=== PATIENT | male | born 1945 | race Caucasian/White ===

== ENCOUNTER → 2016-09-04 | Outpatient (CLI) | payer MEDICARE, OTHER | END | disposition home or self-care (01) | LOC: CFH 15:47 | PROVIDERS: ATTEND Family Medicine | DX: I08.1 Rheumatic disorders of both mitral and tricuspid valves (principal); I37.1 Nonrheumatic pulmonary valve insufficiency; I10 Essential (primary) hypertension | CPT/HCPCS: 93306 ==

== ENCOUNTER 2016-10-31 04:14 | Inpatient (IN) | payer MEDICARE, OTHER ==
[2016-10-30 13:09] LABS: HEMATOCRIT 44.1 % (39.2-51.8); HEMOGLOBIN 14.3 g/dL (13.7-18.0); WHITE BLOOD COUNT 5.6 x10^3/uL (3.4-10)
[2016-10-30 13:11] LABS: PATH.CAST-FLAG NOT PRESENT; SPERM-FLAG NOT PRESENT; SRC-FLAG NOT PRESENT; XTAL-FLAG NOT PRESENT; YLC-FLAG NOT PRESENT
[2016-10-30 13:32] LABS: ASPARTATE AMINO TRANSFERASE 29 U/L (15-37); BLOOD UREA NITROGEN 27 mg/dL (7-18)
[~2016-10-31] VITALS: Ht 160 cm; Wt 83.6 kg
[~2016-10-31 04:14] MED LIST: CALC-545 PO; CHOL2000 PO; IRBE150T25 PO; PRAV40TA2 PO
[2016-10-31] MEDS ORDERED: CHLORHEXIDINE MOUTHWASH 15 ML UDC MM SCH (05:00)
[2016-10-31 05:19] VITALS: BP_SYST 130; BP_SYST 143; BP_DIAS 88; BP_DIAS 95
[2016-10-31] MEDS: MUPIROCIN OINT 2%, 22GM TP SCH ×2 (05:59→19:25)
[2016-10-31] MEDS ORDERED: MIDAZOLAM 10MG/2 ML ONE (06:53)
[2016-10-31] MEDS ORDERED: FENTANYL PF 1000 MCG/20ML ONE (06:53)
[2016-10-31] MEDS ORDERED: PROPOFOL 10 MG/ML, 20ML ONE ×2 (07:25→17:06)
[2016-10-31] MEDS ORDERED: EPINEPHRINE 1 MG/ML, 1ML ONE (07:25)
[2016-10-31] MEDS ORDERED: ROCURONIUM 10 MG/ML ONE ×2 (07:25→17:06)
[2016-10-31] MEDS ORDERED: DEXAMETHASONE 4 MG/ML, 1ML ONE (07:25)
[2016-10-31] MEDS ORDERED: POTASSIUM CHLORIDE 80 MEQ, SODIUM BICARBONATE 8.4% 10 MEQ, MAGNESIUM SULFATE 0.5 GM, LI... IV PRN (07:30)
[2016-10-31] MEDS ORDERED: REGULAR INSULIN 62.5 UNITS in SODIUM CHLORIDE 0.9% 249.375 ML IV PRN ×2 (07:30→10:46)
[2016-10-31] MEDS ORDERED: VANCOMYCIN 1,200 MG in SODIUM CHLORIDE 0.9% 250 ML IV PRN (07:30)
[2016-10-31] MEDS ORDERED: ALBUMIN HUMAN 5% 500 ML IV ONE (07:30)
[2016-10-31] MEDS ORDERED: DEXMEDETOMIDINE 200 MCG in SODIUM CHLORIDE 0.9% 48 ML IV SCH (07:30)
[2016-10-31] MEDS ORDERED: EPINEPHRINE 2 MG in SODIUM CHLORIDE 0.9% 248 ML IV SCH (07:30)
[2016-10-31] MEDS ORDERED: MANNITOL PMX 20% 500 ML IVPB PRN (07:30)
[2016-10-31] MEDS ORDERED: CEFUROXIME 1.5 GM in SODIUM CHLORIDE 0.9% 50 ML IVPB PRN (07:30)
[2016-10-31] MEDS ORDERED: PHENYLEPHRINE 10 MG in SODIUM CHLORIDE 0.9% 249 ML IV PRN ×2 (07:30→10:46)
[2016-10-31] MEDS ORDERED: AMINOCAPROIC ACID 250 MG/ML, 20ML ONE ×2 (08:47)
[2016-10-31] MEDS ORDERED: PROTAMINE SULFATE 10 MG/ML, 25ML ONE ×2 (08:48)
[2016-10-31] MEDS ORDERED: CALCIUM CHLORIDE 10%, 10ML SYR ONE (08:48)
[2016-10-31] MEDS ORDERED: FENTANYL PF 250 MCG/5ML ONE (09:14)
[2016-10-31] MEDS ORDERED: DOBUTAMINE 250 MG in SODIUM CHLORIDE 0.9% 230 ML IV PRN (10:46)
[2016-10-31] MEDS ORDERED: SODIUM CHLORIDE 0.9% 1,000 ML IV ONE (10:46)
[2016-10-31] MEDS ORDERED: NITROGLYCERIN/D5W PMX 250 ML IV PRN (10:46)
[2016-10-31] MEDS ORDERED: DEXMEDETOMIDINE 200 MCG in SODIUM CHLORIDE 0.9% 48 ML IV PRN (10:46)
[2016-10-31] MEDS ORDERED: SODIUM CHLORIDE 0.9% 1,000 ML IV PRN (10:46)
[2016-10-31] MEDS ORDERED: SODIUM BICARBONATE 1 MEQ/ML, 50ML VIAL ONE (10:54)
[2016-10-31] MEDS ORDERED: ALBUMIN HUMAN 25% 50 ML ONE (10:54)
[2016-10-31] MEDS ORDERED: LIDOCAINE 2% 100MG/5ML SYRINGE ONE (10:54)
[2016-10-31] MEDS ORDERED: methylPREDNISolone SOD SUCC 125 MG/2 ML ONE (10:54)
[2016-10-31] MEDS ORDERED: HEPARIN 1,000 UNITS/ML, 30ML ONE ×2 (10:55)
[2016-10-31] MEDS ORDERED: SODIUM BICARB 8.4%, 50ML SYRINGE IV PRN (11:00)
[2016-10-31] MEDS: KSCALE TO 4.5 IV SCH ×3 (11:00→23:00)
[2016-10-31] MEDS ORDERED: LACTATED RINGERS 500 ML IVBOLUS PRN (11:00)
[2016-10-31] MEDS ORDERED: ACETAMINOPHEN 650 MG SUPP PR PRN (11:00)
[2016-10-31] MEDS ORDERED: BISACODYL 10 MG SUPP PR PRN (11:00)
[2016-10-31] MEDS ORDERED: MIDAZOLAM 1 MG/ML, 5ML IVPush PRN (11:00)
[2016-10-31] MEDS ORDERED: EPINEPHRINE 2 MG in SODIUM CHLORIDE 0.9% 248 ML IV PRN (11:00)
[2016-10-31] MEDS ORDERED: MEPERIDINE/PF 25MG/0.5ML IVPush PRN (11:00)
[2016-10-31] MEDS ORDERED: DEXTROSE 50%, 50ML SYRINGE IVPush PRN (11:00)
[2016-10-31] MEDS ORDERED: PROCHLORPERAZINE 5 MG/ML, 2ML IVPush PRN (11:00)
[2016-10-31] MEDS ORDERED: GLUCAGON 1 MG IM PRN (11:00)
[2016-10-31] MEDS ORDERED: DEXTROSE 4 GM TAB.CHEW PO PRN (11:00)
[2016-10-31] MEDS ORDERED: ONDANSETRON 2MG/ML, 2ML IVPush PRN (11:00)
[2016-10-31] MEDS ORDERED: ACETAMINOPHEN 325 MG TABLET PO PRN (11:00)
[2016-10-31] MEDS ORDERED: BISACODYL 5 MG EC TABLET PO PRN (11:00)
[2016-10-31 11:29] LABS: ABG COLLECTION SITE ARTERIAL LINE
[2016-10-31] MEDS: SODIUM CHLORIDE FLUSH 10ML SYR IVF SCH ×3 (11:30→19:25)
[2016-10-31] MEDS: morphine SULFATE 10 MG/ML, 1ML IVPush PRN ×2 (11:35→19:23)
[2016-10-31] MEDS: MAGNESIUM SULFATE 1 GM in SODIUM CHLORIDE 0.9% 50 ML IVPB SCH (12:12)
[2016-10-31 16:42] LABS: HEMATOCRIT 39.8 % (39.2-51.8); HEMOGLOBIN 12.7 g/dL (13.7-18.0)
[2016-10-31] MEDS: VANCOMYCIN 1,200 MG in SODIUM CHLORIDE 0.9% 250 ML IVPB SCH (18:34)
[2016-10-31] MEDS: OXYcodone IR 5MG TABLET PO PRN (19:23)
[2016-10-31] MEDS: DOCUSATE 100 MG CAPSULE PO SCH (19:24)
[2016-10-31] MEDS: MUPIROCIN OINT 2%, 22GM NAS SCH (19:25)
[2016-10-31] MEDS: CEFUROXIME 1.5 GM in SODIUM CHLORIDE 0.9% 50 ML IVPB SCH (19:25)
[2016-10-31] MEDS: INSULIN ASPART 100 UNITS/ML, PEN SQ-INSULIN SCH ×3 (19:43→22:49)
[2016-11-01] MEDS: OXYcodone IR 5MG TABLET PO PRN ×3 (00:18→12:51)
[2016-11-01 00:19] LABS: HEMATOCRIT 38.6 % (39.2-51.8); HEMOGLOBIN 12.2 g/dL (13.7-18.0)
[2016-11-01] MEDS: INSULIN ASPART 100 UNITS/ML, PEN SQ-INSULIN SCH ×3 (00:19→06:47)
[2016-11-01 04:28] LABS: ABG COLLECTION SITE NOT DOCUMENTED
[2016-11-01 04:39] LABS: HEMATOCRIT 38.5 % (39.2-51.8); HEMOGLOBIN 12.4 g/dL (13.7-18.0); WHITE BLOOD COUNT 15.3 x10^3/uL (3.4-10)
[2016-11-01 04:43] LABS: BLOOD UREA NITROGEN 29 mg/dL (7-18)
[2016-11-01] MEDS: KSCALE TO 4.5 IV SCH ×4 (05:00→23:00)
[2016-11-01] MEDS: VANCOMYCIN 1,200 MG in SODIUM CHLORIDE 0.9% 250 ML IVPB SCH (05:58)
[2016-11-01] MEDS: CEFUROXIME 1.5 GM in SODIUM CHLORIDE 0.9% 50 ML IVPB SCH (07:54)
[2016-11-01] MEDS: INSULIN ASPART 100 UNITS/ML, PEN SQ-INSULIN PRN ×6 (08:13→18:12)
[2016-11-01] MEDS: FUROSEMIDE 40 MG/4 ML IV SCH (08:28)
[2016-11-01] MEDS: SODIUM CHLORIDE FLUSH 10ML SYR IVF SCH ×4 (08:28→22:15)
[2016-11-01] MEDS: MUPIROCIN OINT 2%, 22GM NAS SCH ×2 (09:15→22:16)
[2016-11-01] MEDS: DOCUSATE 100 MG CAPSULE PO SCH ×2 (09:15→22:18)
[2016-11-01] MEDS: ASPIRIN 81 MG TABLET EC PO SCH (09:15)
[2016-11-01] MEDS: PANTOPRAZOLE 40 MG IV IVPush SCH (09:15)
[2016-11-01] MEDS: MAGNESIUM SULFATE 1 GM in SODIUM CHLORIDE 0.9% 50 ML IVPB SCH (10:58)
[2016-11-01] MEDS: CHLORHEXIDINE MOUTHWASH 15 ML UDC MM SCH ×2 (12:51→23:00)
[2016-11-01] MEDS ORDERED: WARFARIN 5 MG TABLET PO-COUM ONE (18:00)
[2016-11-01] MEDS: HYDROcodone/APAP 10/325 MG TABLET PO PRN (22:15)
[2016-11-02] MEDS: INSULIN ASPART 100 UNITS/ML, PEN SQ-INSULIN PRN ×5 (02:36→21:02)
[2016-11-02] MEDS: KSCALE TO 4.5 IV SCH (05:00)
[2016-11-02 05:50] LABS: BLOOD UREA NITROGEN 36 mg/dL (7-18)
[2016-11-02 05:55] LABS: HEMATOCRIT 34.6 % (39.2-51.8); HEMOGLOBIN 11.2 g/dL (13.7-18.0); WHITE BLOOD COUNT 14.8 x10^3/uL (3.4-10)
[2016-11-02] MEDS: MUPIROCIN OINT 2%, 22GM NAS SCH ×2 (08:37→20:56)
[2016-11-02] MEDS: SODIUM CHLORIDE FLUSH 10ML SYR IVF SCH ×4 (08:37→20:57)
[2016-11-02] MEDS: PANTOPRAZOLE 40 MG IV IVPush SCH (08:37)
[2016-11-02] MEDS: FUROSEMIDE 40 MG/4 ML IV SCH (08:37)
[2016-11-02] MEDS: ASPIRIN 81 MG TABLET EC PO SCH (08:38)
[2016-11-02] MEDS: DOCUSATE 100 MG CAPSULE PO SCH ×2 (08:38→20:56)
[2016-11-02] MEDS: IRBESARTAN 150 MG TABLET PO SCH (08:38)
[2016-11-02 10:59] VITALS: BP 107/61
[2016-11-02] MEDS: MAGNESIUM SULFATE 1 GM in SODIUM CHLORIDE 0.9% 50 ML IVPB SCH (11:42)
[2016-11-02] MEDS: BACLOFEN 10 MG TABLET PO SCH ×3 (12:30→20:56)
[2016-11-02 13:36] VITALS: BP 109/66
[2016-11-02] MEDS: HYDROcodone/APAP 10/325 MG TABLET PO PRN (16:01)
[2016-11-02] MEDS ORDERED: WARFARIN 3 MG TABLET PO-COUM ONE (18:00)
[2016-11-02 19:18] VITALS: BP 118/70
[2016-11-03 02:56] VITALS: BP 127/80
[2016-11-03 05:13] LABS: BLOOD UREA NITROGEN 36 mg/dL (7-18)
[2016-11-03 05:17] LABS: HEMATOCRIT 34.7 % (39.2-51.8); HEMOGLOBIN 11.3 g/dL (13.7-18.0); WHITE BLOOD COUNT 9.7 x10^3/uL (3.4-10)
[2016-11-03] MEDS: HYDROcodone/APAP 10/325 MG TABLET PO PRN (06:25)
[2016-11-03] MEDS: BACLOFEN 10 MG TABLET PO SCH ×3 (08:28→21:10)
[2016-11-03] MEDS: ASPIRIN 81 MG TABLET EC PO SCH (08:28)
[2016-11-03] MEDS: IRBESARTAN 150 MG TABLET PO SCH (08:28)
[2016-11-03] MEDS: PANTOPRAZOLE 40 MG IV IVPush SCH (08:28)
[2016-11-03] MEDS: DOCUSATE 100 MG CAPSULE PO SCH ×2 (08:28→21:10)
[2016-11-03] MEDS: MUPIROCIN OINT 2%, 22GM NAS SCH ×2 (08:29→21:10)
[2016-11-03] MEDS: SODIUM CHLORIDE FLUSH 10ML SYR IVF SCH ×4 (08:29→21:10)
[2016-11-03] MEDS: FUROSEMIDE 40 MG/4 ML IV SCH (08:29)
[2016-11-03 08:34] VITALS: BP 146/94
[2016-11-03] MEDS: INSULIN ASPART 100 UNITS/ML, PEN SQ-INSULIN PRN ×3 (12:01→21:11)
[2016-11-03 14:56] VITALS: BP 153/82
[2016-11-03] MEDS ORDERED: WARFARIN 7.5 MG TABLET PO-COUM ONE (18:00)
[2016-11-03 19:45] LABS: ABG COLLECTION SITE LEFT RADIAL; COLLATERAL CIRCULATION TESTING NORMAL
[2016-11-03 19:46] VITALS: BP 146/94
[2016-11-04 01:04] VITALS: BP 147/80
[2016-11-04 05:05] LABS: HEMATOCRIT 36.5 % (39.2-51.8); HEMOGLOBIN 11.8 g/dL (13.7-18.0); WHITE BLOOD COUNT 7.3 x10^3/uL (3.4-10)
[2016-11-04 05:12] LABS: BLOOD UREA NITROGEN 25 mg/dL (7-18)
[2016-11-04] MEDS: FUROSEMIDE 40 MG/4 ML IV SCH (08:30)
[2016-11-04] MEDS: SODIUM CHLORIDE FLUSH 10ML SYR IVF SCH ×4 (08:31→20:47)
[2016-11-04] MEDS: PANTOPRAZOLE 40 MG IV IVPush SCH (08:31)
[2016-11-04] MEDS: DOCUSATE 100 MG CAPSULE PO SCH ×2 (08:31→20:47)
[2016-11-04] MEDS: ASPIRIN 81 MG TABLET EC PO SCH (08:31)
[2016-11-04] MEDS: IRBESARTAN 150 MG TABLET PO SCH (08:31)
[2016-11-04] MEDS: MUPIROCIN OINT 2%, 22GM NAS SCH ×2 (08:31→20:47)
[2016-11-04] MEDS: BACLOFEN 10 MG TABLET PO SCH (08:32)
[2016-11-04 10:00] VITALS: BP 126/85
[2016-11-04 14:23] VITALS: BP 131/78
[2016-11-04] MEDS: HYDROcodone/APAP 10/325 MG TABLET PO PRN (16:39)
[2016-11-04 16:51] VITALS: BP 135/83
[2016-11-04] MEDS ORDERED: WARFARIN 10 MG TABLET PO-COUM ONE (18:00)
[2016-11-04 19:27] VITALS: BP 141/89
[2016-11-05 01:21] VITALS: BP 150/92
[2016-11-05 05:50] LABS: BLOOD UREA NITROGEN 31 mg/dL (7-18)
[2016-11-05 07:48] VITALS: BP 130/83
[2016-11-05] MEDS: ASPIRIN 81 MG TABLET EC PO SCH (08:14)
[2016-11-05] MEDS: IRBESARTAN 150 MG TABLET PO SCH (08:14)
[2016-11-05] MEDS: FUROSEMIDE 40 MG/4 ML IV SCH (08:14)
[2016-11-05] MEDS: DOCUSATE 100 MG CAPSULE PO SCH (08:14)
[2016-11-05] MEDS: PANTOPRAZOLE 40 MG IV IVPush SCH (08:14)
[2016-11-05] MEDS: MUPIROCIN OINT 2%, 22GM NAS SCH (08:14)
[2016-11-05] MEDS: SODIUM CHLORIDE FLUSH 10ML SYR IVF SCH ×2 (08:15)
[2016-11-05] MEDS ORDERED: FURO-92 PO (09:54)
[2016-11-05] MEDS ORDERED: ASPI-621 PO (09:54)
[2016-11-05] MEDS ORDERED: WARF7.5T PO-COUM (09:54)
[2016-11-05] MEDS ORDERED: POTA20TA6 PO (09:54)
[2016-11-05] MEDS ORDERED: DOCU-30 PO (09:54)
[2016-11-05] MEDS: HYDROcodone/APAP 10/325 MG TABLET PO PRN (10:57)
[2016-11-05] MEDS ORDERED: HYDR-3240 PO (12:33)
[2016-11-05] MEDS ORDERED: WARFARIN 7.5 MG TABLET PO-COUM SCH (18:00)
== END 2016-11-05 13:00 | disposition home or self-care (01) | DRG 219 ==
LOC: CSU 04:14 → 5SO 11-02 13:02 → DCLOUNGE 11-05 12:31
PROVIDERS: ADMIT Thoracic Surgery (Cardiothoracic Vascular Surgery); ATTEND Thoracic Surgery (Cardiothoracic Vascular Surgery)
PROC: B245ZZ4 Ultrasonography of Left Heart, Transesophageal (ICD-10-PCS; 2016-10-31)
PROC: 5A1221Z Performance of Cardiac Output, Continuous (ICD-10-PCS; 2016-10-31)
PROC: 02UG0JZ Supplement Mitral Valve with Synthetic Substitute, Open Approach (ICD-10-PCS; principal; 2016-10-31 07:30)
DX: I34.0 Nonrheumatic mitral (valve) insufficiency (principal); I50.31 Acute diastolic (congestive) heart failure; E78.5 Hyperlipidemia, unspecified; I11.0 Hypertensive heart disease with heart failure; I36.1 Nonrheumatic tricuspid (valve) insufficiency; I25.10 Atherosclerotic heart disease of native coronary artery without angina pectoris; R09.02 Hypoxemia; Z87.891 Personal history of nicotine dependence
CPT/HCPCS: 36415; 36600; 71010; 71020; 80048; 80053; 81001; 82040; 82330; 82800; 82803; 82810; 82947; 82962; 83036; 83735; 84132; 84295; 85014; 85018; 85025; 85049; 85347; 85610; 85730; 86850; 86900; 86923; 87081; 88305; 93005; 93312; 93321; 93325; 93880; 94002; J0171; J0697; J1100; J1644; J1815; J1940; J2250; J2704; J2720; J3010; J3370; J3475; J3480; J3490; P9045; P9047; C1751; C1760; C9113; J2270; J2370; J2930; J7030; J7050

== ENCOUNTER → 2016-12-24 | Outpatient (CLI) | payer MEDICARE, OTHER ==
[~2016-12-24] MED LIST changes: +ASPI-621 PO; +DOCU-131 PO; +FURO-92 PO; +HYDR-3240 PO; +POTA20TA6 PO; +WARF7.5T PO-COUM
== END | disposition home or self-care (01) ==
LOC: CFH 10:55
PROVIDERS: ATTEND Internal Medicine Cardiovascular Disease
DX: I35.8 Other nonrheumatic aortic valve disorders (principal); I10 Essential (primary) hypertension; Z87.891 Personal history of nicotine dependence
CPT/HCPCS: 93306

== ENCOUNTER → 2019-05-14 | Outpatient (CLI) | payer MEDICARE, OTHER ==
[~2019-05-14] MED LIST changes: -ASPI-621 PO; +ASPI81TA45 PO
== END | disposition home or self-care (01) ==
LOC: CFH 09:50
PROVIDERS: ATTEND Internal Medicine Cardiovascular Disease
DX: I25.10 Atherosclerotic heart disease of native coronary artery without angina pectoris (principal); I11.9 Hypertensive heart disease without heart failure; I42.9 Cardiomyopathy, unspecified; E78.5 Hyperlipidemia, unspecified; I08.8 Other rheumatic multiple valve diseases
CPT/HCPCS: 93306